=== PATIENT | male | born 2000 | race Caucasian/White ===

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

== ENCOUNTER 2024-04-06 23:57 | Observation (INO) ==
--- NOTE | 2024-04-07 00:14 | Emergency Department Note ---
History of Present Illness General Chief complaint: Trauma Stated complaint: FALL, HIT HEAD, ETOH History of Present Illness This 23-year-old male presents the ER who collapsed in front of EMS. Patient has been drinking alcohol all day. He states he does not feel well. He cannot seem to elaborate about not feeling well. Patient states he is healthy with no active medical problems. Patient denies chest pain, dyspnea, drug use, vomiting, diarrhea, fever, chills. He is in town for the [facility] [employer]. Home Medications Medication Instructions Recorded Confirmed Type gabapentin 100 mg capsule 100 mg PO DAILY 08/26/19 08/26/19 History prednisone 20 mg tablet 20 mg PO DAILY 08/26/19 08/26/19 History Allergies Allergy/AdvReac Type Severity Reaction Status Date / Time No Known Allergies Allergy Verified 02/05/19 10:54 Past Med/Surg History Problem List (Updated 04/07/24 @ 01:16 EDT by Chela Cage PA-C) Acute alcohol intoxication (Acute) New onset atrial fibrillation (Acute) Left lumbar radiculitis Medical History (Updated 04/07/24 @ 01:16 EDT by Chela Cage PA-C) Mononucleosis Left hip pain Lower back pain No known health problems Surgical History History of arthroscopy of left shoulder Family History Other No family history of adverse response to anesthesia Social History Smoking Status: Never smoker Second Hand Exposure: No; Do You Dip or Chew Tobacco: Yes (1 CAN EVERY 3 DAYS); Hx Alcohol Use: Yes Alcohol type: beer Hx Substance Use: No Preferred Language: Maldivian Communication Ability: Effective Picture Engraver Required: No Beliefs That Will Affect Care: None Current Living Situation: Other Current Living Situation Comment: [facility] with 3 roommates Feels Safe at Home: Yes Assistive Devices: None Review of Systems A total of 10 systems reviewed and were otherwise negative Physical Exam Vital Signs Vital Signs - 24 hr 04/06/24 23:49 04/06/24 23:49 04/06/24 23:49 Temperature 36.6 C 36.6 C 36.6 C Temperature Source Oral Oral Pulse Rate 63 63 Pulse Rate [Apical] Pulse Rate from SpO2 Sensor Pulse Rhythm Regular Pulse Strength Normal Respiratory Rate 14 14 14 Respiratory Effort / Characteristics Non-Labored Spontaneous Non-Labored Spontaneous Respiratory Depth Normal Normal Respiratory Pattern Regular Regular Blood Pressure 93/49 L 93/48 L Blood Pressure [Right Arm] 93/48 L Blood Pressure Mean 63 Blood Pressure Mean [Right Arm] 63 Pulse Oximetry 93 93 93 Oxygen Delivery Method Room Air Room Air Room Air Oxygen Flow Rate 0 Sepsis Recent Fever Within 48 Hours No Sepsis New/Unexplained Change in Mental Status N/A Sepsis Action Taken by Nursing No Action Required 04/07/24 00:00 04/07/24 00:04 04/07/24 00:30 Temperature 36.9 C Temperature Source Oral Pulse Rate 70 91 H Pulse Rate [Apical] 89 Pulse Rate from SpO2 Sensor 85 Pulse Rhythm Pulse Strength Respiratory Rate 16 21 Respiratory Effort / Characteristics Non-Labored Spontaneous Respiratory Depth Normal Respiratory Pattern Regular Blood Pressure 102/77 Blood Pressure [Right Arm] Blood Pressure Mean 85 Blood Pressure Mean [Right Arm] Pulse Oximetry 99 93 Oxygen Delivery Method Room Air Room Air Oxygen Flow Rate Sepsis Recent Fever Within 48 Hours Sepsis New/Unexplained Change in Mental Status Sepsis Action Taken by Nursing 04/07/24 00:33 04/07/24 00:56 04/07/24 00:56 Temperature Temperature Source Pulse Rate 81 Pulse Rate [Apical] Pulse Rate from SpO2 Sensor Pulse Rhythm Pulse Strength Respiratory Rate Respiratory Effort / Characteristics Respiratory Depth Respiratory Pattern Blood Pressure Blood Pressure [Right Arm] Blood Pressure Mean Blood Pressure Mean [Right Arm] Pulse Oximetry 96 96 Oxygen Delivery Method Room Air Room Air Oxygen Flow Rate Sepsis Recent Fever Within 48 Hours Sepsis New/Unexplained Change in Mental Status Sepsis Action Taken by Nursing 04/07/24 01:00 EST Temperature 36.9 C Temperature Source Oral Pulse Rate Pulse Rate [Apical] Pulse Rate from SpO2 Sensor Pulse Rhythm Pulse Strength Respiratory Rate Respiratory Effort / Characteristics Respiratory Depth Respiratory Pattern Blood Pressure Blood Pressure [Right Arm] Blood Pressure Mean Blood Pressure Mean [Right Arm] Pulse Oximetry Oxygen Delivery Method Oxygen Flow Rate Sepsis Recent Fever Within 48 Hours Sepsis New/Unexplained Change in Mental Status Sepsis Action Taken by Nursing PHYSICAL EXAM: VITALS: Vitals are noted on the nurse's note and reviewed by myself. Vital signs stable. GENERAL: White male with EtOH odor moving all extremities, in no acute distress, nondiaphoretic, well-developed well-nourished. SKIN: The skin was without obvious lacerations or abrasions. Capillary reflex less than 2 seconds. HEAD: Normocephalic atraumatic. EARS: External auditory canals clear, tympanic membranes pearly cross without erythema or effusion bilaterally. No hemotympanums. No saravia sign. No mastoid tenderness. EYES: Pupils equal round and reactive to light and accommodation. Conjunctivae with injection, sclerae without icterus. Extraocular movements intact. NOSE: Patent, turbinates without inflammation or discharge. MOUTH: Mucous membranes moist. Pharynx without erythema or exudate. Uvula midline. Airway patent. Tongue does not deviate. NECK: Supple without nuchal rigidity. Cervical spine is nontender. Full range of motion of the neck without tenderness. No JVD. HEART: Regular rate and rhythm LUNGS: Clear to auscultation bilaterally without wheezes, rales or rhonchi. No dullness to percussion. No retractions or accessory muscle use. No chest wall tenderness. ABDOMEN: Positive bowel sounds x 4. Normal tympanic percussion. Soft, nontender, without masses or organomegaly. No guarding or rebound tenderness. MUSCULOSKELETAL: No tenderness of the thoracic or lumbar spine. No tenderness with pelvic rocking. Full range of motion without tenderness to palpation in all extremities. Strength 5/5 throughout. NEURO: Patient was alert and oriented to person place and time. Normal sensation to light and sharp touch. No focal neurological deficits. Course Administered Medications Ondansetron HCl (Ondansetron Inj 2 Mg/Ml 2 Ml Vial) 4 mg IV Q6H [facility] Stop: 05/07/24 00:14 Last Admin: 04/07/24 00:29 Dose: 4 mg Documented By: WERO Discontinued Medications Famotidine (Pepcid 20mg Iv Push) 20 mg in 5 mls @ 2.5 mls/min IV NOW STA Stop: 04/07/24 00:08 Last Admin: 04/07/24 00:29 Dose: 2.5 mls/min Documented By: WERO Sodium Chloride (Nss) 1,000 mls @ 999 mls/hr IV .Q1H1M ONE Stop: 04/07/24 01:45 EST Last Admin: 04/07/24 01:02 EDT Dose: 999 mls/hr Documented By: HECTOR Critical Care Time Critical Care Time: Yes Total Critical Care Time: 35 I have personally spent 35 minutes of critical care time in the direct management of this patient. This includes bedside care, interpretation of diagnostic studies, and testing, discussion with consultants, patient, and family members, and other required patient management activities. This 35 minutes is in excess of all separately billable procedures. Medical Decision Making Medical Records Attestation: I reviewed the patient's medical records. Home Medications Current Medication List: was personally reviewed by me Laboratory Data Attestation: I reviewed the patient's lab results. 04/07/24 00:12 04/07/24 00:12 Lab Results 04/07/24 04/07/24 Range/Units 00:12 00:39 WBC 12.10 H (4.8-10.8) K/ul RBC 4.60 L (4.70-6.10) M/uL Hgb 14.0 (14.0-18.0) g/dl Hct 39.6 L (42.0-52.0) % MCV 86.1 (80.0-100.0) fL MCH 30.4 (25.0-34.0) pg MCHC 35.4 (32.0-36.0) g/dL RDW Std Deviation 39.7 (36.4-46.3) fL RDW Coeff of Jacky 12.6 (11.5-14.5) % Plt Count 208 (130-400) K/uL MPV 8.7 L (9.4-12.4) fL Immature Gran % (Auto) 0.2 % Neut % (Auto) 58.5 % Lymph % (Auto) 31.0 % [place] % (Auto) 6.9 % Eos % (Auto) 2.7 % Baso % (Auto) 0.7 % Neut # (Auto) 7.07 H (1.40-6.50) K/uL Lymph # (Auto) 3.75 H (1.20-3.40) K/uL [place] # (Auto) 0.84 H (0.11-0.59) K/uL Eos # (Auto) 0.33 (0.00-0.50) K/uL Baso # (Auto) 0.08 (0.00-0.20) K/uL Immature Gran # (Auto) 0.03 (0.01-0.20) K/uL Sodium 139 (136-145) mmol/L Potassium 3.8 (3.5-5.1) mmol/L Chloride 104 (98-107) mmol/L Carbon Dioxide 23 (21-32) mmol/L Anion Gap 12 H (3-11) BUN 20 (6-23) mg/dl Creatinine 1.24 (0.6-1.4) mg/dl Est Cr Clr Drug Dosing 126.2 ml/min eGFR 83.26 BUN/Creatinine Ratio 16.1 (10-20) Glucose 100 H (70-99(Fasting)) mg/dl Calcium 9.0 (8.6-10.3) mg/dl Magnesium 2.0 (1.7-2.4) mg/dl Total Bilirubin 0.4 (0.2-1.0) mg/dl AST 22 (13-39) U/L ALT 18 (7-52) U/L Alkaline Phosphatase 57 (34-104) U/L Total Creatine Kinase 215 (30-223) U/L Troponin I High Sens 3.2 (0-20) pg/ml Total Protein 7.8 (6.0-8.3) gm/dl Albumin 4.7 (3.4-5.0) gm/dl Globulin 3.1 (2.5-4.0) gm/dl Albumin/Globulin Ratio 1.5 (0.9-2) TSH 3.650 (0.300-4.500) uIu/ml Ethyl Alcohol mg/dL 294.9 H (<10.0) mg/dl Adenovirus (PCR) Not Detected (NotDetected) B. pertussis DNA (PCR) Not Detected (NotDetected) B.parapertussis DNA PCR Not Detected (NotDetected) C. pneumoniae DNA (PCR) Not Detected (NotDetected) Coronavirus OC43 (PCR) Not Detected (NotDetected) Coronavirus HKU1 (PCR) Not Detected (NotDetected) Coronavirus 229E (PCR) Not Detected (NotDetected) SARS-CoV-2 (PCR) Not Detected (NotDetected) Coronavirus NL63 (PCR) Not Detected (NotDetected) Human Metapneumovir PCR Not Detected (NotDetected) Influenza Type A (PCR) Not Detected (NotDetected) Influenza Type B (PCR) Not Detected (NotDetected) M. pneumoniae (PCR) Not Detected (NotDetected) Parainfluenza 1 (PCR) Not Detected (NotDetected) Parainfluenza 2 (PCR) Not Detected (NotDetected) Parainfluenza 3 (PCR) Not Detected (NotDetected) Parainfluenza 4 (PCR) Not Detected (NotDetected) RSV (PCR) Not Detected (NotDetected) Entero/Rhino (PCR) Not Detected (NotDetected) Imaging Data Attestation: I personally reviewed and interpreted this imaging study as follows: Radiologist's Impression: Cervical Spine CT 04/07/24 00:07 EXAM: CT cervical spine wo con CLINICAL HISTORY: pt collapsed, r/o trauma kf TECHNIQUE: A CT scan of the cervical spine was performed without the administration of intravenous contrast. Contiguous axial images were obtained from the skull base to the upper thoracic spine. Coronal and sagittal reformatted images were also reviewed. One of the following dose-reduction techniques was utilized for this exam. Automated exposure control, adjustment of the mA and/or kV according to patient size, and use of iterative reconstruction. COMPARISON: None. FINDINGS: Vertebrae: The vertebral bodies are normal in height and alignment. No evidence of acute fracture or dislocation. The cortical and trabecular bone patterns are normal. No signs of lytic or sclerotic lesions. Normal configuration of the posterior elements. Intervertebral Discs: The intervertebral disc spaces are preserved. No evidence of significant disc bulging or herniation. No calcifications or ossifications were noted within the discs. Facet Joints: The facet joints are normal without evidence of dislocation, subluxation, or significant degenerative changes. Neural Foramina: The neural foramina is patent bilaterally at all levels. No evidence of foraminal narrowing or nerve root compression. Prevertebral Soft Tissues: The prevertebral soft tissues are normal in thickness without evidence of mass or abnormal fluid collection. Additional Findings: No other significant findings are noted in the visualized soft tissue structures or bony elements. IMPRESSION: Normal CT scan of the cervical spine. No evidence of acute fracture, dislocation, or significant degenerative changes. Electronically signed by Angeline Birmingham 04-07-2024 01:[address] 04/07/24 00:07 EXAM: CT head/brain wo con CLINICAL HISTORY: pt collapsed, r/o trauma TECHNIQUE: Axial noncontrast CT scan of the brain was performed from the skull base to the high parietal region with coronal and sagittal reformats. One of the following dose reduction techniques was utilized for this exam: Automated exposure control, adjustment of the mA and/or kV according to patient size, use of iterative reconstruction. COMPARISON: None. FINDINGS: The visualized brain parenchyma shows normal appearance. No focal parenchymal abnormalities are demonstrated. Cross-white matter differentiation is maintained. No midline shifts or deformity. No intracerebral or extra axial hematoma. Normal size and configuration of the cerebral ventricles. Normal CT appearance of the posterior fossa structures namely the cerebellar hemispheres, brainstem, and cerebellar peduncles. The cerebello-pontine angles are clear. The osseous structures in the skull base are unremarkable. No definite calvarium fractures. Scanned paranasal sinuses are clear. IMPRESSION: 1. Unremarkable noncontrast CT of the brain. 2. No evidence of established infarction, intracranial or extracranial hemorrhage. Electronically signed by Angeline Birmingham 04-07-2024 01:53 AM [facility] Narrative Prior records/ancillary studies reviewed. Triage Nursing notes reviewed. Additional history obtained from EMS. The patient's history was concerning for traumatic injury Differential diagnosis: Etiologies such as fracture, dislocation, intra-abdominal, pneumothorax, intrathoracic , intracranial, neurologic, as well as other traumatic pathologies were entertained. Physical examination findings: As above. The patients vitals were stable ER treatment provided: IV Normal Saline hydration, Zofran and Pepcid were ordered An order was placed for continuous cardiac monitoring. The monitor shows a rate of 60-100 with a A-fib rhythm per my interpretation. On reassessment the patient felt better. Vital signs were stable. Diagnostic interpretation by me: A 12 lead ECG was ordered for not feeling right EKG: Irregularly irregular with no acute ST-T wave changes. Impression rate controlled A-fib independently interpreted by myself The labs Independently Interpreted by myself revealed leukocytosis, stable H&H Alcohol 294 Negative troponin Imaging studies: Chest x-ray with no acute consolidation, pneumothorax or free air per my independent interpretation CTs were reviewed and read by radiology as above Consultation: A consultation was placed with hospitalist. The case was discussed and diagnostics were reviewed. The patient was admitted to their service. This appears to be consistent with holiday heart. Patient denies prior history of heart disease. EKG showed rate controlled A-fib. Alcohol was 300. Medicine was consulted and case discussed. Patient be admitted to the medical service.. By the evaluation outlined above emergent etiologies such as fracture, dislocation, intra-abdominal, pneumothorax, pulmonary contusion, hemothorax, intracranial, neurologic,as well as others were deemed relatively unlikely. The pt informed about the findings as listed above. All questions were answered and pleased with the treatment. The chart was completed utilizing [employer] Speech voice recognition software. Grammatical errors, random word insertions, pronoun errors, and incomplete sentences are an occassional consequence of this system due to software limitations, ambient noise, and hardware issues. Any formal questions or concerns about the content, text, or information contained within the body of this dictation should be directly addressed to the physician assistant customer service manager for clarification. Impression & Plan New onset atrial fibrillation, Acute alcohol intoxication Discharge Plan Visit Data Chief Complaint: Trauma Stated Complaint: FALL, HIT HEAD, ETOH ED Provider: Chip De Oliveira ED Midlevel Provider: Chela Cage Discharge Problem: New onset atrial fibrillation, Acute alcohol intoxication Patient Disposition: Admitted As Inpatient Condition: Good Forms Stand Alone Forms: [facility] Prescriptions Prescriptions: No Action gabapentin 100 mg capsule 100 mg PO DAILY prednisone 20 mg tablet 20 mg PO DAILY Referrals Referrals: PCP,NO [Primary Care Provider] -
[2024-04-07 00:29] LABS: Basophils # (auto) 0.08 K/uL (0.00-0.20); Basophils % (auto) 0.7 %; Eosinophils # (auto) 0.33 K/uL (0.00-0.50); Eosinophils % (auto) 2.7 %; Hematocrit (blood only) 39.6 % (42.0-52.0); Immature Granulocytes # (auto) 0.03 K/uL (0.01-0.20); Immature Granulocytes % (auto) 0.2 %; Lymphocytes # (auto) 3.75 K/uL (1.20-3.40); Mean Corpuscular Hemoglobin 30.4 pg (25.0-34.0); Mean Corpuscular Hgb Conc 35.4 g/dL (32.0-36.0); Mean Corpuscular Volume 86.1 fL (80.0-100.0); Mean Platelet Volume 8.7 fL (9.4-12.4); Monocytes # (auto) 0.84 K/uL (0.11-0.59); Monocytes % (auto) 6.9 %; Neutrophils # (auto) 7.07 K/uL (1.40-6.50); Neutrophils % (auto) 58.5 %; Platelet Count 208 K/uL (130-400); RDW Coefficient of Variation 12.6 % (11.5-14.5); RDW Standard Deviation 39.7 fL (36.4-46.3)
[2024-04-07] MEDS: ONDANSETRON INJ 2 MG/ML 2 ML VIAL IV SCH (00:29)
[2024-04-07] MEDS: FAMOTIDINE 20MG IV PUSH 20 MG/5 ML SYR IV STA (00:29)
[2024-04-07 00:49] LABS: Albumin Globulin Ratio 1.5 (0.9-2); Albumin Level 4.7 gm/dl (3.4-5.0); BUN Creatinine Ratio 16.1 (10-20); Bilirubin,Total 0.4 mg/dl (0.2-1.0); Creatinine Clr Calc Pharmacy 126.2 ml/min; Globulin 3.1 gm/dl (2.5-4.0); Potassium 3.8 mmol/L (3.5-5.1); Total Protein 7.8 gm/dl (6.0-8.3)
[2024-04-07] MEDS: SODIUM CHLORIDE 0.9% 1,000 ML IV ONE (01:02)
[2024-04-07] MEDS ORDERED: ONDANSETRON INJ 2 MG/ML 2 ML VIAL IV PRN (01:10)
--- NOTE | 2024-04-07 01:12 | History & Physical Report ---
Date of Service April 07, 2024 Assessment & Plan (1) New onset atrial fibrillation: (2) Acute alcohol intoxication: (3) Dehydration, moderate: Plan New onset atrial fibrillation, rate controlled- The patient will be admitted to telemetry for serial cardiac enzymes, serial EKG's, cardiac rhythm monitoring and a 2-D echocardiogram with Dopplers. Initial troponin 3.2 Likely secondary to acute alcohol intoxication, "holiday heart" Plan is to aggressively rehydrate as much as 1 can during the IV fluid restriction interval Status post 1 L normal saline bolus, and [address] on NSS + KCl 20 mill equivalents at 250 mL/h x 1 L Check a renal function panel and magnesium level at 10 AM this morning BioFire negative Consult cardiology Status post fall- CT scan head without contrast negative CT scan cervical spine without contrast negative Chest x-ray without acute findings Acute alcohol intoxication- Alcohol level 294.9 Per significant other, does not drink on a daily basis, but tends to binge drink. Drinking today with left hand association with the [employer] football game No indication to have on AWSS protocol at this time History of Present Illness Chief Complaint: The patient is brought to the emergency department by EMS, after collapsing in front of EMS while downtown and appearing intoxicated. HPI and ROS are limited due to patient intoxication, and most information is gathered via EMS. Information was also gathered through his significant other, who he gave permission to the ED to speak to over the phone Primary Care Provider: NO PCP The patient is a 23-year-old male with a past medical history including left lumbar radiculitis, who has been drinking alcohol most of the day associated with the [employer] game, and collapsed in front of the EMS while downtown. Upon arrival to the emergency department, the patient reported that he just did not feel right, but could not be more specific. Monitor revealed him to be in rate controlled atrial fibrillation with systolic blood pressure initially in the mid 90s, improved to the mid 100s after receiving 1 L of normal saline bolus and 1 L of LR bolus. Patient did have CT scans of head and cervical spine, that were read as no acute findings, and [facility]. Allergies Allergy/AdvReac Type Severity Reaction Status Date / Time No Known Allergies Allergy Verified 02/05/19 10:54 Home Medications Medication Instructions Recorded Confirmed Type gabapentin 100 mg capsule 100 mg PO DAILY 08/26/19 08/26/19 History prednisone 20 mg tablet 20 mg PO DAILY 08/26/19 08/26/19 History Past Med/Surg History Problem List (Updated 04/07/24 @ 01:21 EST by Bacilio Kennedy MD) Dehydration, moderate Acute alcohol intoxication (Acute) New onset atrial fibrillation (Acute) Left lumbar radiculitis Medical History (Updated 04/07/24 @ 01:21 EST by Bacilio Kennedy MD) Mononucleosis Left hip pain Lower back pain No known health problems Surgical History History of arthroscopy of left shoulder Family History Other No family history of adverse response to anesthesia Social History Smoking Status: Never smoker Second Hand Exposure: No; Do You Dip or Chew Tobacco: Yes (1 CAN EVERY 3 DAYS); Hx Alcohol Use: Yes Alcohol type: beer Hx Substance Use: No Preferred Language: Slovenian Communication Ability: Effective Quantitative Analyst Marketing Required: No Beliefs That Will Affect Care: None Current Living Situation: Other Current Living Situation Comment: [facility] Student with 3 roommates Feels Safe at Home: Yes Assistive Devices: None Review of Systems Review of Systems: Review of systems is somewhat limited due to patient's intoxicated state, but he denies chest pain or shortness of breath. He does note nausea and was noted to have some vomiting when attempting any form of oral intake. Physical Exam Physical Exam: The patient is awake, alert and oriented 3, slow to respond due to intoxication, well developed and well nourished, normocephalic and atraumatic, lying in bed and in no acute distress except when vomiting HEENT--PERRL, EOMI, mucous membranes and oropharynx dry. Neck--supple. No JVD. No bruits. Thyroid normal, trachea midline, no adenopathy. Heart--irregularly irregular. No murmurs, rubs or gallops. Lungs--clear bilaterally, no respiratory distress, no accessory muscle use. Abdomen--normal bowel sounds and soft. Nontender. Nondistended, no hernias or masses, no organomegaly. Extremities--no cyanosis or clubbing. No edema. There are good distal pulses b/l. Dermatologic--normal skin turgor, normal color, no abnormal lymph nodes, no rash. Neurologic--cranial nerves II through XII grossly intact. Rheumatologic-- limited exam due to intoxication Psychiatric-lethargic, intoxicated Results & Data Results & Data Vital Signs (Past 12 Hours) Vital Signs Temp Pulse Pulse Resp BP BP Pulse Ox 04/07/24 01:00 EST 36.9 C 04/07/24 00:56 96 04/07/24 00:56 96 04/07/24 00:33 81 04/07/24 00:30 91 H 21 102/77 93 04/07/24 00:04 70 04/07/24 00:00 36.9 C 89 16 99 04/06/24 23:49 36.6 C 63 14 93/48 L 93 04/06/24 23:49 36.6 C 14 93/48 L 93 04/06/24 23:49 36.6 C 63 14 93/49 L 93 O2 Del Method O2 Flow Rate 04/07/24 01:00 EST 04/07/24 00:56 Room Air 04/07/24 00:56 Room Air 04/07/24 00:33 04/07/24 00:30 Room Air 04/07/24 00:04 04/07/24 00:00 Room Air 04/06/24 23:49 Room Air 04/06/24 23:49 Room Air 04/06/24 23:49 Room Air 0 Laboratory Results Laboratory Results WBC 12.10 K/ul (4.8-10.8) H 04/07/24 00:12 RBC 4.60 M/uL (4.70-6.10) L 04/07/24 00:12 Hgb 14.0 g/dl (14.0-18.0) 04/07/24 00:12 Hct 39.6 % (42.0-52.0) L 04/07/24 00:12 MCV 86.1 fL (80.0-100.0) 04/07/24 00:12 MCH 30.4 pg (25.0-34.0) 04/07/24 00:12 MCHC 35.4 g/dL (32.0-36.0) 04/07/24 00:12 RDW Std Deviation 39.7 fL (36.4-46.3) 04/07/24 00:12 RDW Coeff of Jacky 12.6 % (11.5-14.5) 04/07/24 00:12 Plt Count 208 K/uL (130-400) 04/07/24 00:12 MPV 8.7 fL (9.4-12.4) L 04/07/24 00:12 Immature Gran % (Auto) 0.2 % 04/07/24 00:12 Neut % (Auto) 58.5 % 04/07/24 00:12 Lymph % (Auto) 31.0 % 04/07/24 00:12 [place] % (Auto) 6.9 % 04/07/24 00:12 Eos % (Auto) 2.7 % 04/07/24 00:12 Baso % (Auto) 0.7 % 04/07/24 00:12 Neut # (Auto) 7.07 K/uL (1.40-6.50) H 04/07/24 00:12 Lymph # (Auto) 3.75 K/uL (1.20-3.40) H 04/07/24 00:12 [place] # (Auto) 0.84 K/uL (0.11-0.59) H 04/07/24 00:12 Eos # (Auto) 0.33 K/uL (0.00-0.50) 04/07/24 00:12 Baso # (Auto) 0.08 K/uL (0.00-0.20) 04/07/24 00:12 Immature Gran # (Auto) 0.03 K/uL (0.01-0.20) 04/07/24 00:12 Sodium 139 mmol/L (136-145) 04/07/24 00:12 Potassium 3.8 mmol/L (3.5-5.1) 04/07/24 00:12 Chloride 104 mmol/L (98-107) 04/07/24 00:12 Carbon Dioxide 23 mmol/L (21-32) 04/07/24 00:12 Anion Gap 12 (3-11) H 04/07/24 00:12 BUN 20 mg/dl (6-23) 04/07/24 00:12 Creatinine 1.24 mg/dl (0.6-1.4) 04/07/24 00:12 Est Cr Clr Drug Dosing 126.2 ml/min 04/07/24 00:12 eGFR 83.26 04/07/24 00:12 BUN/Creatinine Ratio 16.1 (10-20) 04/07/24 00:12 Glucose 100 mg/dl (70-99(Fasting)) H 04/07/24 00:12 Calcium 9.0 mg/dl (8.6-10.3) 04/07/24 00:12 Magnesium 2.0 mg/dl (1.7-2.4) 04/07/24 00:12 Total Bilirubin 0.4 mg/dl (0.2-1.0) 04/07/24 00:12 AST 22 U/L (13-39) 04/07/24 00:12 ALT 18 U/L (7-52) 04/07/24 00:12 Alkaline Phosphatase 57 U/L (34-104) 04/07/24 00:12 Total Creatine Kinase 215 U/L (30-223) 04/07/24 00:12 Troponin I High Sens 3.2 pg/ml (0-20) 04/07/24 00:12 Total Protein 7.8 gm/dl (6.0-8.3) 04/07/24 00:12 Albumin 4.7 gm/dl (3.4-5.0) 04/07/24 00:12 Globulin 3.1 gm/dl (2.5-4.0) 04/07/24 00:12 Albumin/Globulin Ratio 1.5 (0.9-2) 04/07/24 00:12 TSH 3.650 uIu/ml (0.300-4.500) 04/07/24 00:12 Ethyl Alcohol mg/dL 294.9 mg/dl (<10.0) H 04/07/24 00:12 Adenovirus (PCR) Not Detected (NotDetected) 04/07/24 00:39 B. pertussis DNA (PCR) Not Detected (NotDetected) 04/07/24 00:39 B.parapertussis DNA PCR Not Detected (NotDetected) 04/07/24 00:39 C. pneumoniae DNA (PCR) Not Detected (NotDetected) 04/07/24 00:39 Coronavirus OC43 (PCR) Not Detected (NotDetected) 04/07/24 00:39 Coronavirus HKU1 (PCR) Not Detected (NotDetected) 04/07/24 00:39 Coronavirus 229E (PCR) Not Detected (NotDetected) 04/07/24 00:39 SARS-CoV-2 (PCR) Not Detected (NotDetected) 04/07/24 00:39 Coronavirus NL63 (PCR) Not Detected (NotDetected) 04/07/24 00:39 Human Metapneumovir PCR Not Detected (NotDetected) 04/07/24 00:39 Influenza Type A (PCR) Not Detected (NotDetected) 04/07/24 00:39 Influenza Type B (PCR) Not Detected (NotDetected) 04/07/24 00:39 M. pneumoniae (PCR) Not Detected (NotDetected) 04/07/24 00:39 Parainfluenza 1 (PCR) Not Detected (NotDetected) 04/07/24 00:39 Parainfluenza 2 (PCR) Not Detected (NotDetected) 04/07/24 00:39 Parainfluenza 3 (PCR) Not Detected (NotDetected) 04/07/24 00:39 Parainfluenza 4 (PCR) Not Detected (NotDetected) 04/07/24 00:39 RSV (PCR) Not Detected (NotDetected) 04/07/24 00:39 Entero/Rhino (PCR) Not Detected (NotDetected) 04/07/24 00:[address] 04/07/24 00:07 EXAM: CT cervical spine wo con CLINICAL HISTORY: pt collapsed, r/o trauma kf TECHNIQUE: A CT scan of the cervical spine was performed without the administration of intravenous contrast. Contiguous axial images were obtained from the skull base to the upper thoracic spine. Coronal and sagittal reformatted images were also reviewed. One of the following dose-reduction techniques was utilized for this exam. Automated exposure control, adjustment of the mA and/or kV according to patient size, and use of iterative reconstruction. COMPARISON: None. FINDINGS: Vertebrae: The vertebral bodies are normal in height and alignment. No evidence of acute fracture or dislocation. The cortical and trabecular bone patterns are normal. No signs of lytic or sclerotic lesions. Normal configuration of the posterior elements. Intervertebral Discs: The intervertebral disc spaces are preserved. No evidence of significant disc bulging or herniation. No calcifications or ossifications were noted within the discs. Facet Joints: The facet joints are normal without evidence of dislocation, subluxation, or significant degenerative changes. Neural Foramina: The neural foramina is patent bilaterally at all levels. No evidence of foraminal narrowing or nerve root compression. Prevertebral Soft Tissues: The prevertebral soft tissues are normal in thickness without evidence of mass or abnormal fluid collection. Additional Findings: No other significant findings are noted in the visualized soft tissue structures or bony elements. IMPRESSION: Normal CT scan of the cervical spine. No evidence of acute fracture, dislocation, or significant degenerative changes. Electronically signed by Angeline Birmingham 04-07-2024 01:[address] 04/07/24 00:07 EXAM: CT head/brain wo con CLINICAL HISTORY: pt collapsed, r/o trauma TECHNIQUE: Axial noncontrast CT scan of the brain was performed from the skull base to the high parietal region with coronal and sagittal reformats. One of the following dose reduction techniques was utilized for this exam: Automated exposure control, adjustment of the mA and/or kV according to patient size, use of iterative reconstruction. COMPARISON: None. FINDINGS: The visualized brain parenchyma shows normal appearance. No focal parenchymal abnormalities are demonstrated. Cross-white matter differentiation is maintained. No midline shifts or deformity. No intracerebral or extra axial hematoma. Normal size and configuration of the cerebral ventricles. Normal CT appearance of the posterior fossa structures namely the cerebellar hemispheres, brainstem, and cerebellar peduncles. The cerebello-pontine angles are clear. The osseous structures in the skull base are unremarkable. No definite calvarium fractures. Scanned paranasal sinuses are clear. IMPRESSION: 1. Unremarkable noncontrast CT of the brain. 2. No evidence of established infarction, intracranial or extracranial hemorrhage. Electronically signed by Angeline Birmingham 04-07-2024 01:53 AM Code Status & VTE Plan Code Status Full code VTE Prophylaxis Plan VTE Prophylaxis will be ordered: Yes PG Care Time/CCT Total # of Minutes Spent Total Time Spent with Patient: Total time spent is greater than 50% in coordination of care (as documented) at patient's floor/unit and/or counseling patient: Coding Level of Care Code 52983 INT INP/OBS CARE MIN Diagnoses New onset atrial fibrillation I48.91 Acute alcohol intoxication F10.929 Dehydration, moderate E86.0
[2024-04-07 01:14] LABS: Troponin I High Sensitivity 3.2 pg/ml (0-20)
[2024-04-07] MEDS ORDERED: POTASSIUM CHLORIDE 20 MEQ/15 ML UDC PO STA (01:16)
[2024-04-07 01:23] LABS: Thyroid Stimulating Hormone 3.65 uIu/ml (0.300-4.500)
[2024-04-07 01:36] LABS: Adenovirus PCR Not Detected (NotDetected); Bordetella parapertussis PCR Not Detected (NotDetected); Bordetella pertussis PCR Not Detected (NotDetected); Chlamydia pneumoniae PCR Not Detected (NotDetected); Coronavirus 229E PCR Not Detected (NotDetected); Coronavirus CoV-2 (COVID19)PCR Not Detected (NotDetected); Coronavirus HKU1 PCR Not Detected (NotDetected); Coronavirus NL63 PCR Not Detected (NotDetected); Coronavirus OC43PCR Not Detected (NotDetected); Human Metapneumovirus PCR Not Detected (NotDetected); Influenza A PCR Not Detected (NotDetected); Influenza B PCR Not Detected (NotDetected); Mycoplasma pneumoniae PCR Not Detected (NotDetected); Parainfluenza Virus 1 PCR Not Detected (NotDetected); Parainfluenza Virus 2 PCR Not Detected (NotDetected); Parainfluenza Virus 3 PCR Not Detected (NotDetected); Parainfluenza Virus 4 PCR Not Detected (NotDetected); Respiratory Syncytial VirusPCR Not Detected (NotDetected); Rhinovirus/Enterovirus PCR Not Detected (NotDetected)
[2024-04-07] MEDS: NSS + 20MEQ KCL 20 MEQ/1,000 ML BAG IV SCH (01:36)
[2024-04-07] MEDS: MAGNESIUM SULFATE / D5W 1 GM/100 ML BAG IV STA (01:39)
[2024-04-07] MEDS: LACTATED RINGER'S 1,000 ML IV ONE (01:42)
--- NOTE | 2024-04-07 01:45 | CT Scan Report ---
EXAM: CT cervical spine wo con CLINICAL HISTORY: pt collapsed, r/o trauma kf TECHNIQUE: A CT scan of the cervical spine was performed without the administration of intravenous contrast. Contiguous axial images were obtained from the skull base to the upper thoracic spine. Coronal and sagittal reformatted images were also reviewed. One of the following dose-reduction techniques was utilized for this exam. Automated exposure control, adjustment of the mA and/or kV according to patient size, and use of iterative reconstruction. COMPARISON: None. FINDINGS: Vertebrae: The vertebral bodies are normal in height and alignment. No evidence of acute fracture or dislocation. The cortical and trabecular bone patterns are normal. No signs of lytic or sclerotic lesions. Normal configuration of the posterior elements. Intervertebral Discs: The intervertebral disc spaces are preserved. No evidence of significant disc bulging or herniation. No calcifications or ossifications were noted within the discs. Facet Joints: The facet joints are normal without evidence of dislocation, subluxation, or significant degenerative changes. Neural Foramina: The neural foramina is patent bilaterally at all levels. No evidence of foraminal narrowing or nerve root compression. Prevertebral Soft Tissues: The prevertebral soft tissues are normal in thickness without evidence of mass or abnormal fluid collection. Additional Findings: No other significant findings are noted in the visualized soft tissue structures or bony elements. IMPRESSION: Normal CT scan of the cervical spine. No evidence of acute fracture, dislocation, or significant degenerative changes. Electronically signed by Angeline Birmingham 04-07-2024 01:45 AM
--- NOTE | 2024-04-07 01:53 | CT Scan Report ---
EXAM: CT head/brain wo con CLINICAL HISTORY: pt collapsed, r/o trauma TECHNIQUE: Axial noncontrast CT scan of the brain was performed from the skull base to the high parietal region with coronal and sagittal reformats. One of the following dose reduction techniques was utilized for this exam: Automated exposure control, adjustment of the mA and/or kV according to patient size, use of iterative reconstruction. COMPARISON: None. FINDINGS: The visualized brain parenchyma shows normal appearance. No focal parenchymal abnormalities are demonstrated. Cross-white matter differentiation is maintained. No midline shifts or deformity. No intracerebral or extra axial hematoma. Normal size and configuration of the cerebral ventricles. Normal CT appearance of the posterior fossa structures namely the cerebellar hemispheres, brainstem, and cerebellar peduncles. The cerebello-pontine angles are clear. The osseous structures in the skull base are unremarkable. No definite calvarium fractures. Scanned paranasal sinuses are clear. IMPRESSION: 1. Unremarkable noncontrast CT of the brain. 2. No evidence of established infarction, intracranial or extracranial hemorrhage. Electronically signed by Angeline Birmingham 04-07-2024 01:53 AM
[2024-04-07] MEDS ORDERED: ACETAMINOPHEN 325 MG TAB PO PRN (02:10)
[2024-04-07 03:29] LABS: Amphetamines+Metham, Urine Neg (Neg); Barbiturates, Urine Neg (Neg); Benzodiazepine, Urine Neg (Neg); Cocaine, Urine Neg (Neg); Fentanyl, Urine Neg (Neg); MDMA (Ecstacy), Urine Neg (Neg); Marijuana, Urine Neg (Neg); Methadone, Urine Neg (Neg); Opiate, Urine Neg (Neg); Phencyclidine, Urine Neg (Neg)
--- NOTE | 2024-04-07 07:59 | XRay Report ---
EXAM: XR chest 1V portable CLINICAL HISTORY: TRAUMA FALL ETOH JMF TECHNIQUE: An X-ray image of the chest is obtained in AP projection. COMPARISON: No prior studies are available for comparison. FINDINGS: Pulmonary Parenchyma: Bilateral prominent bronchovascular markings with bilateral prominent hilar shadows could be due to lung congestion Faint opacities noted in the left lower lobe including could represent lung contusions further evaluation with CT is recommended if clinically indicated No pulmonary nodules are identified. No evidence of pleural effusion or pleural thickening. Heart and Mediastinum: Heart size and shape are normal. No mediastinal widening or masses. No hilar or mediastinal lymphadenopathy. Bony Thorax: Bony thorax appears intact without fractures or deformities. Soft Tissues: Soft tissues overlying the chest wall are unremarkable. IMPRESSION: 1. Bilateral prominent bronchovascular markings with bilateral prominent hilar shadows could be due to lung congestion 2. Faint opacities noted in the left lower lobe including could represent lung contusions further evaluation with CT is recommended if clinically indicated Electronically signed by Angeline Birmingham 04-07-2024 07:59 AM
[2024-04-07 10:38] LABS: Albumin Level 4.4 gm/dl (3.4-5.0); BUN Creatinine Ratio 17.1 (10-20); Calcium 9.1 mg/dl (8.6-10.3); Creatinine Clr Calc Pharmacy 146.1 ml/min; Phosphorus 2.9 mg/dl (2.5-4.9)
[2024-04-07] MEDS: LORazepam 2 MG/1 ML VIAL ONE (10:51)
[2024-04-07] MEDS: LORazepam 2 MG/1 ML VIAL IV STA (10:51)
[2024-04-07 11:22] LABS: BUN Creatinine Ratio 16.7 (10-20); Calcium 9.5 mg/dl (8.6-10.3); Creatinine Clr Calc Pharmacy 142.1 ml/min; Potassium 4.1 mmol/L (3.5-5.1)
[2024-04-07 11:28] LABS: Troponin I High Sensitivity 3.1 pg/ml (0-20)
[2024-04-07] MEDS ORDERED: LORazepam 2 MG/1 ML VIAL IV STA (11:40)
[2024-04-07 11:48] LABS: D Dimer 680 ug/L FEU (0-500)
[2024-04-07] MEDS: OPTIRAY 320 125ml IV ONE ×2 (11:56→12:08)
--- NOTE | 2024-04-07 11:59 | Hospitalist Progress Note ---
Date of Service April 07, 2024 Assessment & Plan (1) New onset atrial fibrillation: (2) Acute alcohol intoxication: (3) Dehydration, moderate: Plan Atrial Fibrillation/Chest Pain Now NSR on monitor EKG normalized CTPE negative for PE Venous Doppler of b/l LE negative for DVT Episode of agitation/pain today likely panic in origin Ativan 1mg IV q4h PRN anxiety Initial trop negligible, repeat the same S/p IV and oral hydration Chemistries WNL Cardiology consult: likely "holiday heart", Echo WNL Will continue to monitor on telemetry overnight. Likely dc in am. Fall CT scan head without contrast negative CT scan cervical spine without contrast negative Chest x-ray without acute findings EtOH Intoxication Alcohol level 294.9 Not a daily drinker Drinking at [employer] game yesterday No indication to have on AWSS protocol at this time Admission and Anticipated Discharge Date Admission Date: April 07, 2024 Subjective Patient seen and evaluated at bedside this morning. No acute events overnight. 23 yo male here s/p acute alcohol intoxication with fall found to be in afib. Afib has resolved on monitor. Initially stated he had no acute complaints and that he wanted to leave. While awaiting results of echo and repeat lab work he developed an episode of agitation and L sided chest pain. At the time denies SOB, abdominal pain, nausea. Denied radiation of pain. Stat labs drawn. D-dimer elevated. Patient to CT for CTPE and for Doppler of b/l lower extremities Review of Systems Review of Systems: reviewed, per HPI Physical Exam Physical Exam: Constitutional: well-appearing, anxious HEENT: NCAT, no conjunctival injection CV: regular rhythm, no murmur appreciated, extremities well-perfused, no LE edema Resp: CTABL, no wheezes/rales/rhonchi appreciated, no increased work of breathing GI: non distended MSK: no gross deformities appreciated Skin: warm, dry, no rash appreciated Neuro: alert, oriented, no focal neurologic deficit appreciated Results & Data Results & Data Vital Signs (Past 12 Hours) Vital Signs Temp Pulse Pulse Resp BP BP Pulse Ox 04/07/24 11:14 36.7 C 81 22 141/75 H 100 04/07/24 09:50 36.4 C L 81 16 97/66 L 100 04/07/24 07:26 71 04/07/24 07:00 36.4 C L 81 16 97/66 L 100 04/07/24 02:23 36.3 C L 82 18 164/78 H 100 04/07/24 02:10 89 04/07/24 02:10 36.3 C L 82 18 164/78 H 100 04/07/24 01:53 EST 36.9 C 04/07/24 01:30 EST 99 H 19 110/55 L 97 04/07/24 01:00 EST 80 16 113/64 100 04/07/24 01:00 EST 36.9 C 04/07/24 01:00 EDT 36.6 C O2 Del Method O2 Flow Rate 04/07/24 11:14 Room Air 04/07/24 09:50 04/07/24 07:26 04/07/24 07:00 Room Air 04/07/24 02:23 Room Air 04/07/24 02:10 04/07/24 02:10 Room Air 04/07/24 01:53 EST Nasal Cannula 2 04/07/24 01:30 EST Nasal Cannula 2 04/07/24 01:00 EST Nasal Cannula 2 04/07/24 01:00 EST 04/07/24 01:00 EDT Resident Activity Tracking Resident Involvement: Resident Care Provided Care Provided: Adult Hospital Medicine
[2024-04-07] MEDS: OPTIRAY 320 100ml IV ONE (12:09)
--- NOTE | 2024-04-07 12:24 | Ultrasound Report ---
BILATERAL LOWER EXTREMITY VENOUS DOPPLER HISTORY: Acute pain and swelling of the lower legs elevated d dimer COMPARISON STUDY: None. FINDINGS: There is normal compressibility, flow, and augmentation within the bilateral lower extremit y deep venous systems. IMPRESSION: No DVT within the right or left lower extremity. ACT 112: Negative or not required by law. Electronically signed by: Jaime Cespedes M.D. 04/07/2024 12:22 PM
--- NOTE | 2024-04-07 12:45 | Cardiology Consultation ---
Date of Consultation April 07, 2024 Assessment & Plan (1) Acute alcohol intoxication: (2) New onset atrial fibrillation: "holiday Heart due to acute ETOH" (3) Dehydration, moderate: Plan avoid ETOh binging. IVF increase PO intake ECHO reviewed normal no further cardiac recommendations. History of Present Illness Attending Physician: Mulugeta Reynolds MD History of Present Illness 23 y/o w acute ETOH intoxication presenting with syncope and Afib. Spontaneously converted to NSR while in hospital. Pt distressed when seen at bedside, uncomfortable being in the hospital. No complaints other than he was hot. Allergies Allergy/AdvReac Type Severity Reaction Status Date / Time No Known Allergies Allergy Verified 02/05/19 10:54 Home Medications Medication Instructions Recorded Confirmed Type gabapentin 100 mg capsule 100 mg PO DAILY 08/26/19 08/26/19 History prednisone 20 mg tablet 20 mg PO DAILY 08/26/19 08/26/19 History Patient History Medical History Mononucleosis Left hip pain Lower back pain No known health problems Surgical History History of arthroscopy of left shoulder Family History Other No family history of adverse response to anesthesia Social History Smoking Status: Never smoker Second Hand Exposure: No; Do You Dip or Chew Tobacco: Yes (1 CAN EVERY 3 DAYS); Hx Alcohol Use: Yes Alcohol type: beer Hx Substance Use: No Preferred Language: Mohawk Communication Ability: Effective Cyanide Pot Hardener Required: No Beliefs That Will Affect Care: None Current Living Situation: Alone Current Living Situation Comment: [facility] Student with 3 roommates Feels Safe at Home: Yes Assistive Devices: None Review of Systems Review of Systems: All systems reviewed & are unremarkable except as noted in HPI & below Physical Exam Physical Exam: AAO x 3 in NAD Respiratory: CTA b/l Cardiovascular: regular no murmurs noted Results & Data Vital Signs (Past 12 Hours) Vital Signs Temp Pulse Pulse Resp BP BP Pulse Ox 04/07/24 11:14 36.7 C 81 22 141/75 H 100 04/07/24 09:50 36.4 C L 81 16 97/66 L 100 04/07/24 07:26 71 04/07/24 07:00 36.4 C L 81 16 97/66 L 100 04/07/24 02:23 36.3 C L 82 18 164/78 H 100 04/07/24 02:10 89 04/07/24 02:10 36.3 C L 82 18 164/78 H 100 04/07/24 01:53 EST 36.9 C 04/07/24 01:30 EST 99 H 19 110/55 L 97 04/07/24 01:00 EST 80 16 113/64 100 O2 Del Method O2 Flow Rate 04/07/24 11:14 Room Air 04/07/24 09:50 04/07/24 07:26 04/07/24 07:00 Room Air 04/07/24 02:23 Room Air 04/07/24 02:10 04/07/24 02:10 Room Air 04/07/24 01:53 EST Nasal Cannula 2 04/07/24 01:30 EST Nasal Cannula 2 04/07/24 01:00 EST Nasal Cannula 2 Laboratory Results Abnormal lab results 04/07/24 04/07/24 04/07/24 Range/Units 00:12 10:03 10:49 WBC 12.10 H (4.8-10.8) K/ul RBC 4.60 L (4.70-6.10) M/uL Hct 39.6 L (42.0-52.0) % MPV 8.7 L (9.4-12.4) fL Neut # (Auto) 7.07 H (1.40-6.50) K/uL Lymph # (Auto) 3.75 H (1.20-3.40) K/uL [place] # (Auto) 0.84 H (0.11-0.59) K/uL D-Dimer 680 H* (0-500) ug/L FEU Anion Gap 12 H (3-11) Glucose 100 H 110 H (70-99(Fasting)) mg/dl Ethyl Alcohol mg/dL 294.9 H (<10.0) mg/dl
--- NOTE | 2024-04-07 12:50 | CT Scan Report ---
CT angio chest PE protocol CT DOSE: 1967.05 mGy.cm HISTORY: 23 years-old Male with PE. Acute shortness of breath TECHNIQUE: Multiple CTA images of the chest were obtained after the intravenous administration of 150 ml Optiray. Coronal and sagittal MIPS were obtained from the axial data set and were submitted for review. All measurements were obtained according to NASCET criteria. A dose lowering technique was u tilized adhering to the principles of ALARA. COMPARISON: Duplex venous Doppler study and chest radiograph studies of same day FINDINGS: CTA: There is adequate opacification of the pulmonary arteries to the level of the subsegmental branches w ithout convincing evidence of acute pulmonary embolism. Normal thoracic aorta Heart size is normal. CT CHEST: No thyroid nodule or pathologically enlarged lymph nodes. Residual thymic tissue of the anterior medi astinum. No pneumothorax, pleural effusion or airspace consolidation. The questioned left-sided pulmo nary opacities mention on the same day chest radiograph were therefore artifactual. Central airways a re patent. No acute upper abdominal abnormality. There is a small bony pedunculated bony excrescence involving the medial lateral aspect of the right ninth rib measuring 2.2 cm which appears development al, image 21 series 7. No acute fracture identified. Probable hepatic steatosis. IMPRESSION: Unremarkable CTA of the chest. ACT 112: Negative or not required by law. The above report was generated using voice recognition software. It may contain grammatical, syntax o r spelling errors. Electronically signed by: Jaime Cespedes M.D. 04/07/2024 12:47 PM
[2024-04-07] MEDS ORDERED: LORazepam 2 MG/1 ML VIAL IV PRN (15:13)
[2024-04-07 16:19] VITALS: BP 170/72; PULSE 74; RESP 20; TEMP 97.9; O2SAT 97
--- NOTE | 2024-04-07 16:30 | Discharge Summary ---
Date of Service April 07, 2024 Admission HPI Per Admitting Provider The patient is a 23-year-old male with a past medical history including left lumbar radiculitis, who has been drinking alcohol most of the day associated with the [employer] game, and collapsed in front of the EMS while downtown. Upon arrival to the emergency department, the patient reported that he just did not feel right, but could not be more specific. Monitor revealed him to be in rate controlled atrial fibrillation with systolic blood pressure initially in the mid 90s, improved to the mid 100s after receiving 1 L of normal saline bolus and 1 L of LR bolus. Patient did have CT scans of head and cervical spine, that were read as no acute findings, and is thus referred to the [facility] for admission. Admission Exam Per Admitting Provider The patient is awake, alert and oriented 3, slow to respond due to intoxication, well developed and well nourished, normocephalic and atraumatic, lying in bed and in no acute distress except when vomiting HEENT--PERRL, EOMI, mucous membranes and oropharynx dry. Neck--supple. No JVD. No bruits. Thyroid normal, trachea midline, no adenopathy. Heart--irregularly irregular. No murmurs, rubs or gallops. Lungs--clear bilaterally, no respiratory distress, no accessory muscle use. Abdomen--normal bowel sounds and soft. Nontender. Nondistended, no hernias or masses, no organomegaly. Extremities--no cyanosis or clubbing. No edema. There are good distal pulses b/l. Dermatologic--normal skin turgor, normal color, no abnormal lymph nodes, no rash. Neurologic--cranial nerves II through XII grossly intact. Rheumatologic-- limited exam due to intoxication Psychiatric-lethargic, intoxicated Principal Diagnosis Alcohol Intoxication, Atrial Fibrillation Discharge Exam Constitutional: well-appearing, anxious HEENT: NCAT, no conjunctival injection CV: regular rhythm, no murmur appreciated, extremities well-perfused, no LE edema Resp: CTABL, no wheezes/rales/rhonchi appreciated, no increased work of breathing GI: non distended MSK: no gross deformities appreciated Skin: warm, dry, no rash appreciated Neuro: alert, oriented, no focal neurologic deficit appreciated Discharge Data Allergies Allergy/AdvReac Type Severity Reaction Status Date / Time No Known Allergies Allergy Verified 02/05/19 10:54 Consultations 04/07/24 01:32 ED Decision to Admit Stat 04/07/24 02:10 Consult Cardiology Routine Ordered Studies 04/07/24 00:07 CT cervical spine wo con Stat CT head/brain wo con Stat 04/07/24 10:36 CT angio chest PE protocol Stat 04/07/24 12:00 US venous doppler LE BI Stat Hospital Course (1) New onset atrial fibrillation: (2) Acute alcohol intoxication: (3) Dehydration, moderate: Plan Atrial Fibrillation/Chest Pain Now NSR on monitor EKG normalized CTPE negative for PE Venous Doppler of b/l LE negative for DVT Episode of agitation/pain today likely panic in origin Ativan 1mg IV q4h PRN anxiety Initial trop negligible, repeat the same S/p IV and oral hydration Chemistries WNL Cardiology consult: likely "holiday heart", Echo WNL Plan was to monitor on telemetry overnight to ensure stability of NSR, patient and mother requesting discharge to home. Follow up with primary care and/or cardiology within one week for repeat EKG strongly advised Fall CT scan head without contrast negative CT scan cervical spine without contrast negative Chest x-ray without acute findings EtOH Intoxication Alcohol level 294.9 Not a daily drinker Drinking at [employer] game yesterday Total Time Total Time Spent Total Time Spent (In Minutes): see attending documentation Discharge Plan Discharge Items Patient Disposition: Home - Self-Care Reason For Visit: NEW ONSET ATRIAL FIB, ALCOHOL INTOXICATION Discharge Diagnosis: Afib, EtOH intoxication Condition on Discharge: Good Activity: Resume your previous activity Activity Comment: as tolerated Non-emergency contact: Primary Care Provider and Powerhouse Attendant Call non-emergency contact if: your symptoms worsen Follow-up/Referrals: PCP,NO [Primary Care Provider] - Diet: Regular Addtl Attending Provider Instructions: You were admitted to the hospital for alcohol intoxication and an irregular heartbeat (atrial fibrillation). You were treated with fluids and electrolytes. Your heart rhythm normalized by the time of discharge. An echocardiogram was performed and was normal. You also had an episode of shortness of breath and chest pain on the day of discharge. A CT of your chest and scans of your legs were done to rule out a blood clot. These were negative. This episode was likely related to anxiety/panic. Your irregular heartbeat was likely the result of alcohol intoxication. Given that this has happened, there is a strong chance that this condition may re-occur with continued alcohol use and mitigation or cessation are strongly advised. Typically we would monitor you for 24 hours so that we can ensure that this condition would not re-occur. Given that you requested an early discharge, it is strongly advised that you follow up within one week with primary care and/or cardiology so that a repeat EKG and examination can be performed to ensure resolution of your episode of atrial fibr illation. A discharge summary will be sent to your primary care physician to ensure continuity of care. Please bring this discharge summary with you to your next office appointment so that your provider can review it at that time. Follow-up appointments: Make a follow-up appointment with your PCP within the next week. It is very important that you follow up with them shortly after discharge from the hospital. Keep all your follow-up appointments as already scheduled. If you cannot make an appointment, notify your provider. Take your medications as instructed; do not skip a dose of your medicines. Make sure all of your doctors know every medicine you are taking (including vyeb-rod-dhpkfxg medicines, vitamins, and supplements). Call your primary care provider before taking any new medicines (including aiyy-eog-iufkbwd medicines, vitamins, and supplements), because some of these may interact with your current medications, or may make your symptoms worse. Tell your primary care provider if you cannot afford your medications. CONTACT YOUR PRIMARY CARE PROVIDER if you experience any of the following: Palpitations - you feel like your heart is skipping a beat You feel lightheaded, dizzy, or pass out Difficulty following your treatment plan, or difficulty taking medications CALL 911 OR GO TO THE EMERGENCY DEPARTMENT if you experience any of the following: Sudden, severe abdominal pain or nausea/vomiting Severe chest pain, or chest pain that radiates (moves) to your jaw or arm Sudden, severe shortness of breath or difficulty breathing Thank you for allowing us to participate in your care. Pending Studies at Discharge: No Stand-Alone Forms: [facility], Smoking Cessation Medications and DC Order Prescriptions: Continued gabapentin 100 mg capsule 100 mg PO DAILY prednisone 20 mg tablet 20 mg PO DAILY Discharge Orders: Discharge Order (Routine); Ordered 04/07/24 Ordered By: Jamil Crespo Admission Data Admit Date/Time: 04/07/24 01:12 EDT Attending Provider: Mulugeta Reynolds Admit Provider: Bacilio Kennedy Primary Care Provider: PCP,NO Other Providers: Bacilio Kennedy; Andreina Maravilla Other Interventions: Discharge Summary Assessment (RN) Last Done: 04/07/24 09:50 Supervising Physician Co-Signing Physician Notes Attending attestation Pt seen and examined in concert with Dr. Crespo. In agreement with the documented findings as noted in the resident documentation with any exceptions or additions as noted here. Patient was sitting at bedside with anxious appearance on initial evaluation without recurrence of presenting symptoms. Following, developed left sided pressure chest pain and shortness of breath resulting in evaluation as noted. On examination, S1/S2 nl RRR no MCG. CTAB. Abd NT/ND BS+ve. EKG NSR without ST/T wave changes apparent Chest pain - neg CTA, doppler of b/l LE, resolution following administration of lorazepam 1mg without recurrence or AF. Atrial fibrillation in the setting of alcohol intoxication without reported routine use - cardiology consult - arrhythmia resolved without recurrence, no further changes on tele monitoring for brief period. CMP and TSH w/o abnormality at time of discharge. Counseling provided re: worsening/changing symptoms, necessity of short term follow up and potential importance of telemetry monitoring in the setting of new onset atrial fibrillation w/ holiday heart. Patient reports will follow up with primary care and cardiology at home and is understanding of precautions as noted. Total attending physician time spent with this patient's care on the day of discharge: 45 minutes. Resident Activity Tracking Resident Involvement: Resident Care Provided Care Provided: Adult Hospital Medicine
--- NOTE | 2024-04-07 17:28 | Electrocardiogram Report ---
Test Reason : Blood Pressure : */* mmHG Vent. Rate : 86 BPM Atrial Rate : * BPM P-R Int : * ms QRS Dur : 104 ms QT Int : 402 ms P-R-T Axes : * -10 33 degrees QTcB Int : 481 ms Atrial fibrillation Incomplete right bundle branch block Prolonged QT Abnormal ECG No previous ECGs available Confirmed by Andreina Maravilal (Hailey) on 04/07/2024 5:28:24 PM Referred By: REFERRED SELF Confirmed By: Andreina Maravilla
--- NOTE | 2024-04-07 17:29 | Electrocardiogram Report ---
Test Reason : Blood Pressure : */* mmHG Vent. Rate : 99 BPM Atrial Rate : 99 BPM P-R Int : 170 ms QRS Dur : 100 ms QT Int : 362 ms P-R-T Axes : 74 84 58 degrees QTcB Int : 464 ms Normal sinus rhythm with sinus arrhythmia Normal ECG When compared with ECG of 07-Apr-2024 00:34, (unconfirmed) Sinus rhythm has replaced Atrial fibrillation Questionable change in QRS axis Confirmed by Andreina Maravilla (Hailey) on 04/07/2024 5:28:35 PM Referred By: REFERRED SELF Confirmed By: Andreina Maravilla
== END 2024-04-07 17:07 | disposition home or self-care (01) ==
LOC: ED 23:57 → 2E 23:57 → SUATTDRO 04-07 01:12 → 2E 04-07 01:53
DX: F10.129 Alcohol abuse with intoxication, unspecified; I48.91 Unspecified atrial fibrillation; Z79.899 Other long term (current) drug therapy; E86.0 Dehydration